=== PATIENT | male | born 1945 | race Caucasian/White ===

== ENCOUNTER → 2025-05-19 | Outpatient (REF) | payer MEDICARE ==
[2025-05-19 18:03] LABS: BASO # 0.0 10^3/uL (0.0-0.2); BASO % 0.7 % (0.0-1.0); EOS # 0.1 10^3/uL (0.0-0.5); EOS % 1.4 % (0.0-3.0); LYMPH # 1.2 10^3/uL (1.5-5.0); LYMPH % 28.4 % (24.0-44.0); MONO # 0.4 10^3/uL (0.0-0.8); MONO % 8.7 % (2.0-8.0); NEUTROPHILS # 2.6 10^3/uL (1.5-8.5); NEUTROPHILS % 60.3 % (36.0-66.0); PLATELET COUNT, AUTOMATED 179 10^3/uL (150-450)
[2025-05-19 18:04] LABS: FREE T4 1.45 NG/DL (0.89-1.76); VITAMIN B12 LEVEL 386.0 PG/ML (211-911)
[2025-05-19 18:13] LABS: IRON (FE) 129.0 UG/DL (65-175); PERCENT SATURATION 42.3 % (19.7-50.0)
[2025-05-19 18:28] LABS: ALT/SGPT 29.0 U/L (7.0-40); AST/SGOT 20.0 U/L (<34); CALCIUM LEVEL 9.7 MG/DL (8.3-10.6); CARBON DIOXIDE LEVEL 27.0 MMOL/L (20-31); CHLORIDE LEVEL 100.0 MMOL/L (98-107); CHOLESTEROL LEVEL 148.0 MG/DL (<200); CHOLESTEROL RISK RATIO 3.7 (<5); CREATININE FOR GFR 0.88 MG/DL (0.70-1.30); GLOMERULAR FILTRATION RATE 86.9 (>35); LDL CHOLESTEROL 86.7 MG/DL (<100); NON-HDL-C 108.1 MG/DL; POTASSIUM SERUM 4.3 MMOL/L (3.5-5.1); SODIUM LEVEL 138.0 MMOL/L (136-145); TRIGLYCERIDES LEVEL 107.0 MG/DL (<150)
[2025-05-20 10:26] LABS: ESTIMATED AVERAGE GLUCOSE 283.0 MG/DL (60-110)
== END ==
LOC: M SFHCCAPE 10:13
PROVIDERS: ATTEND Physician Assistant Medical
DX: G25.81 Restless legs syndrome (principal); I10 Essential (primary) hypertension; Z13.220 Encounter for screening for lipoid disorders; R73.9 Hyperglycemia, unspecified; E80.6 Other disorders of bilirubin metabolism; W57.XXXD Bitten or stung by nonvenomous insect and other nonvenomous arthropods, subsequent encounter; N18.31 Chronic kidney disease, stage 3a

== ENCOUNTER → 2025-06-21 | Outpatient (REF) | payer MEDICARE ==
[2025-06-21 18:30] LABS: LDH LACTATE DEHYDROGENASE 153.0 U/L (120-246)
[2025-06-21 18:32] LABS: ALT/SGPT 31.0 U/L (7.0-40); AST/SGOT 18.0 U/L (<34); CALCIUM LEVEL 9.0 MG/DL (8.3-10.6); CARBON DIOXIDE LEVEL 30.0 MMOL/L (20-31); CHLORIDE LEVEL 101.0 MMOL/L (98-107); CREATININE FOR GFR 0.86 MG/DL (0.70-1.30); GLOMERULAR FILTRATION RATE 87.5 (>35); POTASSIUM SERUM 4.3 MMOL/L (3.5-5.1); SODIUM LEVEL 140.0 MMOL/L (136-145)
[2025-06-21 18:41] LABS: CREATININE, URINE 74.3 MG/DL; MALB URINE SIEMENS 3.0 MG/L
[2025-06-21 18:56] LABS: ESTIMATED AVERAGE GLUCOSE 258.0 MG/DL (60-110)
== END ==
LOC: M SFHCCAPE 08:31
PROVIDERS: ATTEND Physician Assistant Medical
DX: E80.6 Other disorders of bilirubin metabolism (principal); E11.69 Type 2 diabetes mellitus with other specified complication

== ENCOUNTER → 2025-07-29 | Outpatient (REF) | payer MEDICARE ==
[2025-07-29 17:57] LABS: CREATININE FOR GFR 1.01 MG/DL (0.70-1.30); GLOMERULAR FILTRATION RATE 74.7 (>35)
== END ==
LOC: M SFHCCAPE 08:15
PROVIDERS: ATTEND Physician Assistant Medical
DX: I10 Essential (primary) hypertension (principal)

== ENCOUNTER → 2025-08-03 | Outpatient (CLI) | payer MEDICARE ==
[~2025-08-03] MED LIST: ISOVUE-370 76% 100 ML VIAL As Ordered ONE
== END ==
LOC: M RAD 14:40
PROVIDERS: ATTEND Physician Assistant Medical
DX: D80.6 Antibody deficiency with near-normal immunoglobulins or with hyperimmunoglobulinemia (principal); R63.4 Abnormal weight loss
CPT/HCPCS: 74177; Q9967

== ENCOUNTER → 2025-08-23 | Outpatient (CLI) | payer MEDICARE | LOC: M PLAIMG 13:53 | PROVIDERS: ATTEND Internal Medicine Cardiovascular Disease | DX: R07.9 Chest pain, unspecified (principal) ==